=== PATIENT | male | born 1975 | race Hispanic/Latino ===

== ENCOUNTER 2024-06-08 18:25 | Emergency (ER) | payer OTHER ==
[~2024-06-08] VITALS: Ht 188 cm; Wt 122.5 kg
[2024-06-08 18:40] VITALS: BP 138/95; PULSE 90; RESP 18; TEMP 98.1; O2SAT 98
[2024-06-08] MEDS ORDERED: CEPH500B PO (18:59)
[2024-06-08] MEDS: teTANUS/diphthERIA TOXOID [ADULT] 0.5 ML VIAL IM ONE (19:10)
== END 2024-06-08 19:15 | disposition home or self-care (01) ==
LOC: EDH 18:25
DX: S01.81XA Laceration without foreign body of other part of head, initial encounter (principal); W22.09XA Striking against other stationary object, initial encounter; Y93.89 Activity, other specified; Y92.89 Other specified places as the place of occurrence of the external cause; Y99.8 Other external cause status
CPT/HCPCS: 12013; 90471; 90714

== ENCOUNTER 2024-06-15 16:42 | Emergency (ER) | payer OTHER ==
[~2024-06-15] VITALS: Ht 188 cm; Wt 124.7 kg
[~2024-06-15 16:42] MED LIST: CEPH500B PO
--- NOTE | 2024-06-15 17:41 | ERN ---
General Chief Complaint: Suture/Staple Removal Stated Complaint: STAPLE REMOVAL Time Seen by MD: 17:02 Time Seen by Midlevel: 17:02 Source: patient History of Present Illness Initial Comments 49-year-old male presenting to the ER for staple removal. Patient reports having seven stephania placed approximately 10 days ago. No concerns at this time Allergies: Coded Allergies: No Known Drug Allergies (Unverified Allergy, Unknown, 06/08/24) Home Meds Active Scripts Cephalexin Monohydrate (Keflex) 500 Mg Cap, 500 MG PO QID for 7 Days, #28 CAP Prov:FRED SANDRA [employer] HEL[employer] 06/08/24 Past Medical History Past Medical History: No Pertinent History Past Surgical History: None ROS Dictation CONSTITUTIONAL: Negative except for HPI HEAD/FACE: Negative except for HPI EENT: Negative except for HPI RESPIRATORY: Negative except for HPI GASTROINTESTINAL/ABDOMINAL: Negative except for HPI GENITOURINARY: Negative except for HPI MUSCULOSKELETAL: Negative except for HPI INTEGUMENTARY: Negative except for HPI NEUROLOGICAL/PSYCH: Negative except for HPI HEMATOLOGIC/LYMPHATIC: Negative except for HPI All Systems Negative, Except as noted above. 13 point review of systems assessed and all negative except for above. Physical Exam Physical Exam Dictation PHYSICAL EXAM: GENERAL: alert,, awake oriented x 3 HEENT: EOMI, Sclera non icteric, moist mucosa NECK: Supple, no JVD, trachea midline LUNGS: Clear breath sounds bilaterally. No wheezes HEART: Regular rate and rhythm. Normal S1 and S2, without murmurs ABD: Abdomen soft, nontender. Bowel sounds present EXT: No clubbing or cyanosis, NEURO: Alert and oriented to person, follows commands SKIN: Seven ste[address] with no signs of infection MDM 49-year-old male presenting to the ER for staple removal. Patient reports having seven stephania placed approximately 10 days ago. No concerns at this time. On physical examination there are seven stephania to the right parietal scalp with no signs of infection. Seven stephania were removed with no complications. Patient will be discharged home ED Course Vital Signs Date Time Temp Pulse Resp B/P (MAP) Pulse Ox O2 Delivery O2 Flow Rate FiO2 06/15/24 17:49 97.9 99 16 140/90 98 Room Air* 0 21 06/15/24 16:43 98.2 63 20 137/85 Room Air DX & DISP Disposition: Discharge Departure Impression: Primary Impression: Removal of staple Condition: Stable Additional Instructions: Seven stephania were removed from the scalp. There are no signs of infection. Referrals: SELF,REFERRAL (PCP) Time of Disposition: 17:41 I have reviewed the case, and I agree with, Diagnosis and Plan I performed the substantive portion of the visit. I have reviewed and personally made and approve the management plan that is documented in the note by myself or the GABO. I acknowledge for responsibility for the patient's management plan. SOLANGE SHIPMAN Jun 15, 2024 17:41
[2024-06-15 17:49] VITALS: BP 140/90; PULSE 99; RESP 16; TEMP 97.9; O2SAT 98
== END 2024-06-15 18:01 | disposition home or self-care (01) ==
LOC: EDH 16:42
DX: S01.01XD Laceration without foreign body of scalp, subsequent encounter (principal); Z48.02 Encounter for removal of sutures; Z79.899 Other long term (current) drug therapy; X58.XXXD Exposure to other specified factors, subsequent encounter
CPT/HCPCS: 99281